=== PATIENT | female | born 1995 | race Caucasian/White ===

== ENCOUNTER 2020-12-15 15:43 | Emergency (ER) | payer BC ==
[2020-12-15 16:17] VITALS: RESP 18; TEMP 98.5
--- NOTE | 2020-12-15 16:19 | ED ---
General Adult HPI - General Source: patient, RN notes reviewed Mode of arrival: ambulatory Limitations: no limitations <Paul Salamanca - Last Filed: 12/15/20 16:15> <Billy Merino - Last Filed: 12/15/20 17:11> - General Stated complaint: Covid+/21wks preg/low o2 Time Seen by Provider: 12/15/20 16:16 - History of Present Illness Initial comments: This a 25-year-old female presents emergency Department chief complaint shortness of breath. Patient states she started with covid symptoms a few days ago. Patient recently tested positive for covid. Patient states she is 21 weeks . Patient does have history of asthma. Patient states her shortness breath just started last couple days no chest pain no fevers or chills recently. Patient states that she feels better at this time. (Paul Salamanca) This is a 25-year-old female who is 21 weeks . Patient states she was diagnosed with COVID and she felt a little short of breath today so she took her pulse ox at home and it was closer she decided come in. Patient states when she arrived. They took her pulse ox urine was normal. Patient states currently she is not feeling short of breath. Patient states she does have a history of asthma and yesterday she felt as though she had a little bit of a wheeze but today she does not feel that way. Patient denies any chest pain recent fever chills. Patient denies any swelling to the legs or calf tenderness. Patient states she had no palpitations. (Billy Merino) - Related Data Previous Rx's Medication Instructions Recorded Albuterol Inhaler [Ventolin Hfa 2 puff INHALATION RT-QID #2 puff 12/15/20 Inhaler] Review of Systems ROS Other: All systems not noted in ROS Statement are negative. <Paul Salamanca - Last Filed: 12/15/20 16:15> ROS Other: All systems not noted in ROS Statement are negative. <Billy Merino - Last Filed: 12/15/20 17:11> ROS Statement: Those systems with pertinent positive or pertinent negative responses have been documented in the HPI. General Exam <Billy Merino - Last Filed: 12/15/20 17:11> - General Exam Comments Initial Comments: GENERAL: Patient is well-developed and well-nourished. Patient is nontoxic and well- hydrated and is in mild distress. ENT: Neck is soft and supple. No significant lymphadenopathy is noted. Oropharynx is clear. Moist mucous membranes. Neck has full range of motion without eliciting any pain. EYES: The sclera were anicteric and conjunctiva were pink and moist. Extraocular movements were intact and pupils were equal round and reactive to light. Eyelids were unremarkable. PULMONARY: Unlabored respirations. Good breath sounds bilaterally. No audible rales rhonchi or wheezing was noted. CARDIOVASCULAR: There is a regular rate and rhythm without any murmurs gallops or rubs. ABDOMEN: Soft and nontender with normal bowel sounds. SKIN: Skin is clear with no lesions or rashes and otherwise unremarkable. NEUROLOGIC: Patient is alert and oriented x3. Cranial nerves II through XII are grossly intact. Motor and sensory are also intact. Normal speech, volume and content. Symmetrical smile. MUSCULOSKELETAL: Normal extremities with adequate strength and full range of motion. There is no calf tenderness or leg edema LYMPHATICS: No significant lymphadenopathy is noted PSYCHIATRIC: Normal psychiatric evaluation. (Billy Merino) Course Vital Signs 12/15/20 16:13 Temperature 98.5 F Pulse Rate 81 Respiratory 18 Rate Blood Pressure 128/73 O2 Sat by Pulse 97 Oximetry Medical Decision Making <Billy Merino - Last Filed: 12/15/20 17:11> - Medical Decision Making Chest x-ray shows no acute abnormality. Patient's vital signs are normal pulse ox is in the high 90s (Billy Merino) Disposition <Paul Salamanca - Last Filed: 12/15/20 16:15> Is patient prescribed a controlled substance at d/c from ED?: No Time of Disposition: 17:11 <Billy Merino - Last Filed: 12/15/20 17:11> Clinical Impression: COVID-19 Disposition: HOME SELF-CARE Condition: Good Instructions (If sedation given, give patient instructions): Coronavirus Disease 2019 (COVID-19) Prescriptions: Albuterol Inhaler [Ventolin Hfa Inhaler] 2 puff INHALATION RT-QID #2 puff Referrals: None,Stated [Primary Care Provider] - 1-2 days
--- NOTE | 2020-12-15 16:47 | XR ---
EXAMINATION TYPE: XR chest 2V DATE OF EXAM: 12/15/2020 CLINICAL HISTORY: covid. TECHNIQUE: Frontal and lateral view of the chest. COMPARISON: None FINDINGS: The cardiomediastinal silhouette is within normal limits for size. Pulmonary vasculature i s normal. There is no focal air space opacity, pleural effusion, or pneumothorax seen. The osseous st ructures are intact. IMPRESSION: No acute cardiopulmonary process.
[2020-12-15 17:27] VITALS: BP 122/62; PULSE 88
== END 2020-12-15 17:30 | disposition home or self-care (01) ==
LOC: EC 15:43
DX: O98.512 Other viral diseases complicating pregnancy, second trimester (principal); U07.1 COVID-19; O99.512 Diseases of the respiratory system complicating pregnancy, second trimester; J45.909 Unspecified asthma, uncomplicated; Z3A.21 21 weeks gestation of pregnancy
CPT/HCPCS: 71046; 99285

== ENCOUNTER 2021-04-26 15:12 | Inpatient (IN) | payer BC ==
[2021-04-26] MEDS ORDERED: OXYTOCIN 10 UNIT/ML 1 ML VIAL IM PRN (15:37)
[2021-04-26] MEDS ORDERED: CARBOPROST TROMETHAMINE 250 MCG/ML 1 ML AMP IM PRN (15:37)
[2021-04-26] MEDS ORDERED: LIDOCAINE 0.5% (PF) 5 MG/ML (50 ML SDV) SQ PRN (15:37)
[2021-04-26] MEDS ORDERED: TERBUTALINE 1 MG/ML VIAL SQ PRN (15:37)
[2021-04-26] MEDS ORDERED: METHYLERGONOVINE 0.2 MG/ML 1 ML AMP IM PRN (15:37)
[2021-04-26] MEDS ORDERED: OXYTOCIN 30 UNITS/500 ML NS 30 UNIT in SALINE 1 500ML.BAG IV SCH (15:45)
[2021-04-26] MEDS: LACTATED RINGERS 1,000 ML IV SCH ×2 (15:47→22:22)
[2021-04-26 15:50] LABS: Basophils % (A) 0 %; Eosinophils % (A) 0 %; HCT 37.5 % (34.0-46.0); HGB 12.8 gm/dL (11.4-16.0); Lymphocytes # (A) 1.3 k/uL (1.0-4.8); Lymphocytes % (A) 13 %; MCH 30.9 pg (25.0-35.0); MCHC 34.1 g/dL (31.0-37.0); MCV 90.7 fL (80.0-100.0); Mean Platelet Volume 8.8; Monocytes # (A) 0.4 k/uL (0-1.0); Monocytes % (A) 4 %; Neutrophils # (A) 7.8 k/uL (1.3-7.7); Neutrophils % (A) 81 %; Platelet Count 202 k/uL (150-450); RBC 4.13 m/uL (3.80-5.40); RDW 15.4 % (11.5-15.5); WBC 9.7 k/uL (3.8-10.6)
[2021-04-26] MEDS ORDERED: BUTORPHANOL 1 MG/ML 1 ML VIAL IV PRN (16:55)
--- NOTE | 2021-04-26 16:59 | P.HPOB ---
History of Present Illness H&P Date: 04/26/21 Chief Complaint: IUP at 40-2/7 weeks This is a 25-year-old 1 para 0 with an estimated due date of 04/24, 40- 2/7 weeks that presents to labor and delivery for induction of labor secondary to postdates. Patient has been receiving routine care which has been essentially uncomplicated. Ultrasound done today for postdates, estimated weight 26th percentile, normal amniotic fluid index, vertex presentation was appreciated. Patient did have a COVID 19 infection during this . Patient notes good movement, denies contractions or vaginal bleeding. Patient has a blood type of O-, rubella status immune, hepatitis surface antigen negative, HIV negative, RPR is nonreactive, group beta strep was negative. Review of Systems Constitutional: Denies fatigue, Denies fever Ears, nose, mouth and throat: Denies headache Cardiovascular: Reports leg edema Respiratory: Denies dyspnea Gastrointestinal: Denies nausea, Denies vomiting Genitourinary: Reports Past Medical History Past Medical History: Asthma Additional Past Medical History / Comment(s): scoliosis History of Any Multi-Drug Resistant Organisms: None Reported Past Surgical History: No Surgical Hx Reported Past Psychological History: No Psychological Hx Reported Smoking Status: Never smoker Past Alcohol Use History: None Reported Past Drug Use History: None Reported Medications and Allergies Home Medications Medication Instructions Recorded Confirmed Type Albuterol Inhaler [Ventolin Hfa 2 puff INHALATION RT-QID #2 puff 12/15/20 04/26/21 Rx Inhaler] Aspirin 81 mg PO DAILY 04/26/21 04/26/21 History Ferrous Sulfate [Feosol] 325 mg PO DAILY 04/26/21 04/26/21 History Pnv No.95/Ferrous Fum/Folic AC 1 tab PO DAILY 04/26/21 04/26/21 History [ Multivitamin Tablet] Allergies Allergy/AdvReac Type Severity Reaction Status Date / Time amoxicillin [From Amoxil] Allergy Rash/Hives Verified 04/26/21 15:34 cefaclor [From Ceclor] Allergy Rash/Hives Verified 04/26/21 15:34 Penicillins Allergy Rash/Hives Verified 04/26/21 15:34 Exam Osteopathic Statement: *. No significant issues noted on an osteopathic structural exam other than those noted in the History and Physical/Consult. Vital Signs Temp Pulse Resp BP 04/26/21 15:39 98.5 F 84 16 130/79 Intake and Output 04/26/21 04/26/21 04/26/21 06:59 14:59 22:59 Other: Weight 72.575 kg Targeted physical exam is performed in this date and certified legal investigator a well-nourished well-developed female in no acute distress, breathing is nonlabored, heart has regular rhythm, abdomen is gravid and appropriate for gestational age, on cervical exam she is 2/70/-3 station bulging bag of mcknight appreciated. V ertex presentation is confirmed. heart tones were noted be category 1 and she is amanda regularly. Results Result Diagrams: 04/26/21 15:40 Abnormal Lab Results - Last 24 Hours (Table) 04/26/21 Range/Units 15:40 Neutrophils # 7.8 H (1.3-7.7) k/uL Assessment and Plan (1) Post-dates Current Visit: Yes Status: Acute Code(s): O48.0 - POST-TERM SNOMED Code(s): 60711277 Plan: 25-year-old 1 para 0 at 40-2/7 weeks presents for induction of labor secondary to postdates. Patient is admitted to labor and delivery Pitocin induction of labor is begun. Amniotomy will be performed when appropriate. We'll monitor closely, options for analgesia are discussed in quitting Stadol and epidural. Patient does desire epidural when appropriate.
[2021-04-26] MEDS ORDERED: ROPIVACAINE 5MG/ML 20ML VIAL ONE (21:44)
[2021-04-26] MEDS ORDERED: fentaNYL (PF) 50 MCG/ML 5 ML AMP ONE (21:44)
[2021-04-26] MEDS ORDERED: SODIUM CHLORIDE 0.9% 100 ML BAG ONE (21:44)
[2021-04-27] MEDS: LACTATED RINGERS 1,000 ML IV SCH (01:00)
[2021-04-27] MEDS ORDERED: HYDROCORTISONE 2.5% RECTAL CREAM 30 GM TUBE RECTAL PRN (04:28)
[2021-04-27] MEDS ORDERED: diphenhydrAMINE 50 MG CAP PO PRN (04:28)
[2021-04-27] MEDS ORDERED: SIMETHICONE 80 MG CHEWABLE PO PRN (04:28)
[2021-04-27] MEDS ORDERED: diphenhydrAMINE 50 MG/ML 1 ML VIAL IVP PRN ×2 (04:28)
[2021-04-27] MEDS ORDERED: LANOLIN CREAM 5 GM TUBE TOPICAL PRN (04:28)
[2021-04-27] MEDS ORDERED: BENZOCAINE/MENTHOL SPRAY 1 GM/SPRAY AEROSOL TOPICAL PRN (04:28)
[2021-04-27] MEDS ORDERED: diphenhydrAMINE 25 MG CAP PO PRN (04:28)
[2021-04-27] MEDS ORDERED: ZOLPIDEM 5 MG TAB PO PRN (04:28)
--- NOTE | 2021-04-27 04:28 | P.PROBDLV ---
Vaginal Delivery Note - . Vaginal Delivery Note: This is a 25-year-old 1 para 0 at 40-2/7 weeks that presented to labor and delivery earlier this evening for induction of labor. Patient was admitted to labor and delivery and Pitocin induction of labor was begun. Once regular contractions were appreciated amniotomy was performed. Clear fluid was appreciated. Patient progressed through labor eventually becoming uncomfortable and requested epidural placement. Epidural was placed without difficulty by the anesthesia department. Patient progressed to complete began pushing and had a normal spontaneous vaginal delivery of a viable female infant, a loose nuchal cord was noted at delivery and delivered through. Weight of 6 lbs. 12 oz., Apgars of 8 and 9 at one and 5 minutes respectively, delivery time of 408. The umbilical cord was doubly clamped and cut and the infant was passed to the maternal abdomen. A spontaneous cry was noted at . The placenta was then delivered spontaneously intact with a three-vessel cord being noted. On inspection the patient's vaginal vault a secondary midline laceration was appreciated. After instillation of lidocaine the repair was completed with 3-0 Rapide in the usual fashion. The uterus was noted to be above the umbilicus on bimanual exam multiple clots were cleared from the uterus, the uterus was then firm and 2 below the umbilicus. Prior to delivery of the placenta the bladder was drained for 100 mL of clear yellow urine. After repair was complete hemostasis was noted, uterus is firm and below the umbilicus. All counts were noted be correct 2 at the end of the procedure. Patient and tolerated delivery well and are resting comfortably.
[2021-04-27] MEDS ORDERED: OXYTOCIN 30 UNITS/500 ML NS 30 UNIT in SALINE 1 500ML.BAG IV SCH (04:30)
[2021-04-27] MEDS ORDERED: miSOPROStoL 200 MCG TAB RECTAL PRN (07:00)
[2021-04-27] MEDS: IBUPROFEN 600 MG TAB PO PRN ×3 (07:03→21:22)
[2021-04-27] MEDS: SENNOSIDES-DOCUSATE SODIUM 1 EACH TAB PO SCH (08:07)
[2021-04-27] MEDS: PRENATAL VIT-IRON-FOLIC ACID 1 EACH CAP PO SCH (08:07)
[2021-04-27] MEDS ORDERED: Rhogam IMMUNE GLOBULIN 1,500 UNIT/1 ML IM ONE (09:20)
[2021-04-27 09:25] LABS: Basophils % (A) 0 %; Eosinophils % (A) 0 %; HCT 30.8 % (34.0-46.0); HGB 10.6 gm/dL (11.4-16.0); Lymphocytes # (A) 0.7 k/uL (1.0-4.8); Lymphocytes % (A) 4 %; MCH 31.3 pg (25.0-35.0); MCHC 34.3 g/dL (31.0-37.0); MCV 91.4 fL (80.0-100.0); Mean Platelet Volume 9.3; Monocytes # (A) 0.4 k/uL (0-1.0); Monocytes % (A) 2 %; Neutrophils # (A) 16.8 k/uL (1.3-7.7); Neutrophils % (A) 93 %; Platelet Count 168 k/uL (150-450); RBC 3.38 m/uL (3.80-5.40); RDW 15.7 % (11.5-15.5); WBC 18.1 k/uL (3.8-10.6)
--- NOTE | 2021-04-27 10:32 | P.PN ---
Progress Note - Text Progress Note Date: 04/27/21 25-year-old 1 now para 1 status post normal spontaneous vaginal delivery early this morning at 408. Patient has noted increased bleeding at intervals, uterus noted to be above the umbilicus and shifted to the right. Patient states she is unable to void a good amount. Patient had a small void. Patient was noting back pain with passage of large clot. On abdominal exam uterus is noted to be above the umbilicus shifted to the right. Catheter kit is opened, urethra is swabbed with Betadine 3. Latex free catheter is placed and an approximate 3 mL of urine is drained from the bladder. 1 mg of Stadol is given IV. Manual extraction of a large amount of clots is performed. Uterus was then noted to be firm and below the umbilicus. Flow is scant at that time. Membrane is appreciated within the clots. Scant flow after extraction. hemorrhage We will start IV antibiotics Kefzol 2 g IV every 8 for 24 hours, 3 doses. Timed voids, we will encourage patient to get up to the bathroom every 2 hours. CBC this evening to monitor hemoglobin.
[2021-04-27 18:27] LABS: HCT 25.9 % (34.0-46.0); MCH 30.1 pg (25.0-35.0); MCHC 33.8 g/dL (31.0-37.0); Mean Platelet Volume 9.6; Platelet Count 181 k/uL (150-450); RBC 2.91 m/uL (3.80-5.40); RDW 15.2 % (11.5-15.5); WBC 17.7 k/uL (3.8-10.6)
[2021-04-27 18:29] LABS: HGB 8.8 gm/dL (11.4-16.0)
--- NOTE | 2021-04-28 09:14 | P.PNOBGVD ---
Subjective - Subjective Principal diagnosis: day #1 s/p , PPH Interval history: Patient is feeling much better today. She states her pain is well-controlled. Miranda remains draining clear yellow urine. Lochia is noted to be minimal. She is breast-feeding without difficulty. is in the nursery for IV antibiotics Patient reports: Reports appetite normal, Reports voiding normally, Reports pain well controlled, Reports ambulating normally [place]: doing well (In the nursery for IV antibiotics) Objective - Latest Vital Signs Latest vital signs: Vital Signs Temp Pulse Resp BP Pulse Ox 04/28/21 00:00 98.0 F 80 16 110/70 04/27/21 20:30 98.7 F 112 H 14 124/63 98 04/27/21 16:29 99.0 F 105 H 17 124/68 04/27/21 12:00 98.3 F 107 H 18 118/77 97 Intake and Output 04/27/21 04/28/21 04/28/21 22:59 06:59 14:59 Intake Total 600 Output Total 200 500 600 Balance 400 -500 -600 Intake: Oral 600 Output: Urine 200 500 600 - Exam Extremities: Present: normal, edema Abdomen: Present: normal appearance, soft Uterus: Present: normal, firm - Labs Labs: Abnormal Lab Results - Last 24 Hours (Table) 04/27/21 04/27/21 Range/Units 09:03 18:17 WBC 18.1 H 17.7 H (3.8-10.6) k/uL RBC 3.38 L 2.91 L (3.80-5.40) m/uL Hgb 10.6 L 8.8 L D (11.4-16.0) gm/dL Hct 30.8 L 25.9 L (34.0-46.0) % RDW 15.7 H (11.5-15.5) % Neutrophils # 16.8 H (1.3-7.7) k/uL Lymphocytes # 0.7 L (1.0-4.8) k/uL Assessment and Plan (1) Post-dates Current Visit: Yes Status: Acute Code(s): O48.0 - POST-TERM SNOMED Code(s): 96248049 (2) Status post vaginal delivery Current Visit: Yes Status: Acute Code(s): AMQ9585 - SNOMED Code(s): 41502 8002 (3) hemorrhage Current Visit: Yes Status: Acute Code(s): O72.1 - OTHER IMMEDIATE HEMORRHAGE SNOMED Code(s): 74758888 (4) Acute blood loss anemia Current Visit: Yes Status: Acute Code(s): D62 - ACUTE POSTHEMORRHAGIC ANEMIA SNOMED Code(s): 128365076 Plan: 25-year-old G1 now P1 status post normal spontaneous vaginal delivery, hemorrhage with acute blood loss anemia. Patient is doing well. Miranda remains this morning we'll plan to discontinue and await spontaneous void. remains in the nursery for IV antibiotics. Plan CBC this morning, continue routine care.
[2021-04-28] MEDS: PRENATAL VIT-IRON-FOLIC ACID 1 EACH CAP PO SCH (09:43)
[2021-04-28] MEDS: SENNOSIDES-DOCUSATE SODIUM 1 EACH TAB PO SCH ×3 (09:43→19:38)
[2021-04-28] MEDS: IBUPROFEN 600 MG TAB PO PRN ×2 (09:44→19:38)
[2021-04-28 10:01] LABS: HCT 23.8 % (34.0-46.0); HGB 8.1 gm/dL (11.4-16.0); MCH 30.8 pg (25.0-35.0); MCHC 34.2 g/dL (31.0-37.0); MCV 90.3 fL (80.0-100.0); Mean Platelet Volume 8.6; Platelet Count 159 k/uL (150-450); RBC 2.64 m/uL (3.80-5.40); RDW 15.5 % (11.5-15.5); WBC 14.5 k/uL (3.8-10.6)
[2021-04-28] MEDS: IRON POLYSACCHARIDES COMPLEX 150 MG CAP PO SCH (12:00)
[2021-04-29] MEDS: ACETAMINOPHEN TAB 325 MG TAB PO PRN ×2 (00:47→09:22)
[2021-04-29] MEDS: IBUPROFEN 600 MG TAB PO PRN ×2 (04:49→12:22)
[2021-04-29 08:36] VITALS: RESP 18
--- NOTE | 2021-04-29 09:03 | P.DS ---
Providers Date of admission: 04/26/21 15:12 Expected date of discharge: 04/29/21 Attending physician: Reba Catherine Primary care physician: Stated None - Discharge Diagnosis(es) (1) Post-dates Current Visit: Yes Status: Acute (2) Status post vaginal delivery Current Visit: Yes Status: Acute (3) hemorrhage Current Visit: Yes Status: Acute (4) Acute blood loss anemia Current Visit: Yes Status: Acute Hospital Course: This is a 25-year-old 1 now para 1 that presented to labor and delivery for induction of labor on 04/26. Patient had been receiving routine care which is been essentially uncomplicated. For full details on this patient please see the dictated history and physical. Patient was admitted and Pitocin augmentation of labor was begun. Once regular contractions were noted patient underwent amniotomy and clear fluid was noted. Patient became uncomfortable and did request epidural placement. Epidural was placed without difficulty by the anesthesia department. Patient progressed to complete began pushing and had a normal spontaneous vaginal delivery of a viable female infant at 408, weight of 6 lbs. 12 oz. with Apgars of 8 and 9 at one and 5 minutes respectively. A loose nuchal cord was delivered through at the time of delivery. Patient did sustain a second-degree midline laceration which was repaired in the usual fashion. Patient did sustain a significant hemorrhage, she did blood loss greater than 1000. Manual extraction was performed after delivery with multiple large clots evacuated from the uterine cavity, small amounts of amniotic membrane were appreciated. Acute blood loss anemia was noted hemoglobin going from 12-8. Patient's vital signs have been normal, patient denies dizziness or shortness of breath upon ambulation. Patient states her lochia to be minimal. She is breast-feeding without difficulty. She states her pain is well- controlled. She is ambulating and voiding without difficulty. Her remains in the nursery on IV antibiotics. Patient Condition at Discharge: Good Plan - Discharge Summary Discharge Rx Participant: Yes New Discharge Prescriptions: No Action Aspirin 81 mg PO DAILY Albuterol Inhaler [Ventolin Hfa Inhaler] 2 puff INHALATION RT-QID #2 puff Ferrous Sulfate [Feosol] 325 mg PO DAILY Pnv No.95/Ferrous Fum/Folic AC [ Multivitamin Tablet] 1 tab PO DAILY Discharge Medication List Albuterol Inhaler [Ventolin Hfa Inhaler] 2 puff INHALATION RT-QID #2 puff 12/15/20 [Rx] Aspirin 81 mg PO DAILY 04/26/21 [History] Ferrous Sulfate [Feosol] 325 mg PO DAILY 04/26/21 [History] Pnv No.95/Ferrous Fum/Folic AC [ Multivitamin Tablet] 1 tab PO DAILY 04/26/21 [History] Follow up Appointment(s)/Referral(s): Reba Catherine DO [Doctor of Osteopathic Medicine] - 4 Weeks Activity/Diet/Wound Care/Special Instructions: Patient is urged to continue her vitamin daily, in addition iron supplementation twice daily. Dfst-[id number]-gxupern ibuprofen 600 mg every 6 hours as needed for pain. Discharge Disposition: HOME SELF-CARE
[2021-04-29] MEDS: PRENATAL VIT-IRON-FOLIC ACID 1 EACH CAP PO SCH (09:22)
[2021-04-29] MEDS: SENNOSIDES-DOCUSATE SODIUM 1 EACH TAB PO SCH (09:22)
[2021-04-29] MEDS: IRON POLYSACCHARIDES COMPLEX 150 MG CAP PO SCH (12:26)
[2021-04-29 15:59] VITALS: BP 111/62; PULSE 96; TEMP 98.4
== END 2021-04-29 18:04 | disposition home or self-care (01) | DRG 806 ==
LOC: 4FBP 15:12
PROVIDERS: ADMIT Obstetrics & Gynecology Obstetrics; ATTEND Obstetrics & Gynecology Obstetrics
PROC: 10907ZC Drainage of Amniotic Fluid, Therapeutic from Products of Conception, Via Natural or Artificial Opening (ICD-10-PCS; 2021-04-26)
PROC: 00HU33Z Insertion of Infusion Device into Spinal Canal, Percutaneous Approach (ICD-10-PCS; 2021-04-26)
PROC: 3E033VJ Introduction of Other Hormone into Peripheral Vein, Percutaneous Approach (ICD-10-PCS; 2021-04-26)
PROC: 3E0R3BZ Introduction of Anesthetic Agent into Spinal Canal, Percutaneous Approach (ICD-10-PCS; 2021-04-26)
PROC: 10E0XZZ Delivery of Products of Conception, External Approach (ICD-10-PCS; principal; 2021-04-27)
PROC: 0KQM0ZZ Repair Perineum Muscle, Open Approach (ICD-10-PCS; principal; 2021-04-27)
PROC: 3E0234Z Introduction of Serum, Toxoid and Vaccine into Muscle, Percutaneous Approach (ICD-10-PCS; 2021-04-27)
DX: O48.0 Post-term pregnancy (principal); O72.1 Other immediate postpartum hemorrhage; Z37.0 Single live birth; D62 Acute posthemorrhagic anemia; O99.02 Anemia complicating childbirth; O26.893 Other specified pregnancy related conditions, third trimester; Z67.41 Type O blood, Rh negative; O69.81X0 Labor and delivery complicated by cord around neck, without compression, not applicable or unspecified; O70.1 Second degree perineal laceration during delivery; Z3A.40 40 weeks gestation of pregnancy; O99.52 Diseases of the respiratory system complicating childbirth; J45.909 Unspecified asthma, uncomplicated; M41.9 Scoliosis, unspecified; Z88.1 Allergy status to other antibiotic agents; Z79.82 Long term (current) use of aspirin; Z79.899 Other long term (current) drug therapy; Z86.16 Personal history of COVID-19; Z88.0 Allergy status to penicillin
CPT/HCPCS: 85025; 85027; 85461; 86850; 86900; 86901; 88307

== ENCOUNTER → 2021-05-04 | Outpatient (CLI) | payer BC ==
--- NOTE | 2021-05-04 09:03 | US ---
EXAMINATION TYPE: US venous doppler duplex LE LT DATE OF EXAM: 05/04/2021 8:51 AM COMPARISON: NONE CLINICAL HISTORY: R22.42 LEFT calf swelling, M79.662 Pain in left ca. SIDE PERFORMED: left TECHNIQUE: The lower extremity deep venous system is examined utilizing real time linear array sonog arminda with graded compression, doppler sonography and color-flow sonography. VESSELS IMAGED: Common Femoral Vein Deep Femoral Vein Greater Saphenous Vein * Femoral Vein Popliteal Vein Small Saphenous Vein * Proximal Calf Veins (* superficial vessels) Left Leg: Negative for DVT Area of redness and pain scanned on left lateral leg, no evidence of superficial thrombus. IMPRESSION: No evidence for DVT.
== END | disposition home or self-care (01) ==
LOC: RADUSWWP 08:22
PROVIDERS: ATTEND Obstetrics & Gynecology Obstetrics
DX: R22.42 Localized swelling, mass and lump, left lower limb (principal); M79.662 Pain in left lower leg

== ENCOUNTER 2023-06-01 14:50 | Outpatient (CLI) | payer BC ==
[2023-06-01 17:39] VITALS: BP 127/68; PULSE 93; RESP 18; TEMP 97.2
--- NOTE | 2023-06-12 16:45 | P.MSEPDOC ---
Presenting Problems - Arrival Data Date of Arrival on Unit: 06/01/23 Time of Arrival on Unit: 14:50 Mode of Transport: Ambulatory - Complaint OB-Reason for Admission/Chief Complaint: Rule Out SROM Comment: rule out SROM at 1300, clear fluid small amount when bending down at work Medical History - Information : 2 Para: 1 Term: 1 : 0 Abortions: Spontaneous or Elective: 0 Number of Living Children: 1 - Gestational Age Gestational Age by NEY (wks/days): 34 Weeks and 4 Days - History Complications: Other Comment: prior hemorrhage Review of Systems - Review of Systems Constitutional: No problems Breast: No problems ENT: No problems Cardiovascular: No problems Respiratory: No problems Gastrointestinal: No problems Genitourinary: No problems Musculoskeletal: No problems Neurological: No problems Skin: No problems Vital Signs - Temperature Temperature: 97.2 F Temperature Source: Temporal Artery Scan - Pulse Right Pulse Oximetery Pulse Rate: 93 Pulse Assessment Method: Pulse Oximetry - Respirations Respiratory Rate: 18 Oxygen Delivery Method: Room Air O2 Sat by Pulse Oximetry: 98 - Blood Pressure Right Arm Blood Pressure: 127/68 Blood Pressure Mean: 87 Blood Pressure Source: Automatic Cuff Medical Screen Scoring - Cervical Exam Dilation (cm): 0 Effacement (%): 0 Station: -3 Membranes: Intact - Uterine Contractions Frequency From (mins): 2 Frequency To (mins): 7 Duration From (seconds): 40 Duration To (seconds): 50 Intensity: Mild Resting: Soft to palpation - Assessment - Baby A Baseline FHR: 140 Heart Rate - NICHD Category: Category I (Normal) NST: Reactive Physician Notification - Physician Notified Physician Notified Date: 06/01/23 Physician Notified Time: 16:00 Physician: Reba Catherine New Order Received: Yes (order to check patients cervix and orally hydrate.) - Notification Comment Comment: after patients cervix checked and orally hydrated patient in TR fr over an hour monitoring contarctions. remain 3-7 minutes apart, patient denies any pain, cervix closed, thick, high, okay to discharge home per Dr Catherine Maternal Triage Index - Maternal Triage Index Presenting for scheduled procedure w/no complaint: No - Stat/Priority 1 Stat Priority 1: No - Urgent/Priority 2 Urgent Priority 2: No - Prompt/Priority 3 Prompt Priority 3: Yes Criteria Met for Priority 3: rule out SROM 34 3/7 weeks gestation Disposition - Disposition OB Disposition: Discharge to home Discharge Date: 06/01/23 Discharge Time: 17:23 I agree with the RN Medical Screening Exam: Yes Case reviewed; plan agreed upon as documented in EMR&OBIX.: Yes Diagnosis: RELATED CONDITIONS, UNSPECIFIED, THIRD TRIMESTER
== END 2023-06-01 17:23 | disposition home or self-care (01) ==
LOC: FBPOP 14:50
PROVIDERS: ATTEND Obstetrics & Gynecology
DX: O47.03 False labor before 37 completed weeks of gestation, third trimester (principal); Z3A.34 34 weeks gestation of pregnancy; Z88.0 Allergy status to penicillin; Z88.8 Allergy status to other drugs, medicaments and biological substances
CPT/HCPCS: 59025; 84112; 99213

== ENCOUNTER 2023-06-28 18:14 | Inpatient (IN) | payer OTHER ==
[2023-06-28] MEDS ORDERED: TRANEXAMIC 1,000 MG/100ML-NACL 1,000 MG in EMPTY BAG 1 BAG IV PRN (19:12)
[2023-06-28] MEDS ORDERED: miSOPROStoL 200 MCG TAB PO PRN (19:12)
[2023-06-28] MEDS ORDERED: METHYLERGONOVINE 0.2 MG/ML 1 ML AMP IM PRN (19:12)
[2023-06-28] MEDS ORDERED: OXYTOCIN 10 UNIT/ML 1 ML VIAL IM PRN (19:12)
[2023-06-28] MEDS ORDERED: CARBOPROST TROMETHAMINE 250 MCG/ML 1 ML AMP IM PRN (19:12)
[2023-06-28] MEDS ORDERED: LIDOCAINE 0.5% (PF) 5 MG/ML (50 ML SDV) SQ PRN (19:12)
[2023-06-28] MEDS ORDERED: TERBUTALINE 1 MG/ML VIAL SQ PRN (19:12)
[2023-06-28] MEDS ORDERED: OXYTOCIN 30 UNITS/500 ML NS 30 UNIT in SALINE 1 500ML.BAG IV SCH (19:15)
[2023-06-28] MEDS: LACTATED RINGERS 1,000 ML IV SCH ×3 (20:00→22:11)
[2023-06-28 20:04] LABS: Basophils % (A) 0 %; Eosinophils # (A) 0.1 k/uL (0-0.7); Eosinophils % (A) 1 %; HCT 31.2 % (34.0-46.0); HGB 10.4 gm/dL (11.4-16.0); Lymphocytes # (A) 1.9 k/uL (1.0-4.8); Lymphocytes % (A) 14 %; MCH 27.2 pg (25.0-35.0); MCHC 33.3 g/dL (31.0-37.0); MCV 81.8 fL (80.0-100.0); Mean Platelet Volume 8.5; Monocytes # (A) 0.6 k/uL (0-1.0); Monocytes % (A) 5 %; Neutrophils # (A) 10.5 k/uL (1.3-7.7); Neutrophils % (A) 79 %; Platelet Count 240 k/uL (150-450); RBC 3.82 m/uL (3.80-5.40); RDW 14.3 % (11.5-15.5); WBC 13.4 k/uL (3.8-10.6)
--- NOTE | 2023-06-28 23:10 | P.HPOB ---
History of Present Illness H&P Date: 06/28/23 Chief Complaint: Leakage of fluid, contractions Ms. Pendleton is a 27 year old at 38 weeks and 3 days with EDC of 07/09/2023 (by LMP consistent with 10 week US) who presents to labor and delivery with gross rupture of membranes at 1600 revealing clear fluid. The patient was also experiencing contractions every 3-5 minutes. The has been uncomplicated. At 37 weeks the fetus was estimated in the 68%ile for growth. Obstetric history: 1 FTVD complicated by hemorrhage Labs: blood type O negative (s/p rhogam 04/10/2023), antibody negative, rubella immune, HBsAg negative, HIV negative, VDRL non-reactive, gonorrhea negative, chlamydia negative, GBS negative. Past medical history: Asthma, scoliosis Past Medical History Past Medical History: Asthma Additional Past Medical History / Comment(s): scoliosis History of Any Multi-Drug Resistant Organisms: None Reported Past Surgical History: No Surgical Hx Reported Past Anesthesia/Blood Transfusion Reactions: No Reported Reaction Past Psychological History: No Psychological Hx Reported Smoking Status: Never smoker Past Alcohol Use History: None Reported Past Drug Use History: None Reported Medications and Allergies Home Medications Medication Instructions Recorded Confirmed Type Aspirin 81 mg PO DAILY 04/26/21 06/28/23 History Pnv No.95/Ferrous Fum/Folic AC 1 tab PO DAILY 04/26/21 06/28/23 History [ Multivitamin Tablet] Loratadine [Claritin] 10 mg PO DAILY 06/28/23 06/28/23 History Allergies Allergy/AdvReac Type Severity Reaction Status Date / Time amoxicillin [From Amoxil] Allergy Rash/Hives Verified 06/01/23 15:13 cefaclor [From Ceclor] Allergy Rash/Hives Verified 06/01/23 15:13 Penicillins Allergy Rash/Hives Verified 06/28/23 18:29 Exam Vital Signs Temp Pulse Resp BP Pulse Ox 06/28/23 23:00 98.5 F 102 H 18 130/61 99 06/28/23 18:18 98.2 F 92 18 127/77 98 Intake and Output 06/28/23 06/28/23 06/29/23 14:59 22:59 06:59 Output Total 200 Balance -200 Output: Estimated Blood Loss 200 Other: Weight 74.389 kg Focused physical is performed is performed. This is a healthy-appearing in no apparent distress. Breathing is non-labored. Abdomen is gravid, non- tender. Cervical exam at admission is 2/60/-2. Extremities are non-tender and non-edematous. heart tones are category I, tocometer is graphing contractions every 4-5 minutes. Results Result Diagrams: 06/28/23 19:47 Abnormal Lab Results - Last 24 Hours (Table) 06/28/23 Range/Units 19:47 WBC 13.4 H (3.8-10.6) k/uL Hgb 10.4 L (11.4-16.0) gm/dL Hct 31.2 L (34.0-46.0) % Neutrophils # 10.5 H (1.3-7.7) k/uL Assessment and Plan Assessment: 18 year old at 38 weeks and 3 days with SROM Plan: Admit, NPO, mIVF, expectant management, continuous EFM and tocometer, close monitoring of patient. Time with Patient: Less than 30
[2023-06-28] MEDS ORDERED: SIMETHICONE 80 MG CHEWABLE PO PRN (23:18)
[2023-06-28] MEDS ORDERED: diphenhydrAMINE 25 MG CAP PO PRN (23:18)
[2023-06-28] MEDS ORDERED: ZOLPIDEM 5 MG TAB PO PRN (23:18)
[2023-06-28] MEDS ORDERED: HYDROCORTISONE 2.5% RECTAL CREAM 30 GM TUBE RECTAL PRN (23:18)
[2023-06-28] MEDS ORDERED: BENZOCAINE/MENTHOL SPRAY 1 GM/SPRAY AEROSOL TOPICAL PRN (23:18)
[2023-06-28] MEDS ORDERED: LANOLIN CREAM 5 GM TUBE TOPICAL PRN (23:18)
[2023-06-28] MEDS ORDERED: diphenhydrAMINE 50 MG/ML 1 ML VIAL IVP PRN ×2 (23:18)
[2023-06-28] MEDS ORDERED: Rhogam IMMUNE GLOBULIN 1,500 UNIT/1 ML IM ONE (23:18)
[2023-06-28] MEDS ORDERED: diphenhydrAMINE 50 MG CAP PO PRN (23:18)
[2023-06-28] MEDS ORDERED: ACETAMINOPHEN TAB 325 MG TAB PO PRN (23:18)
[2023-06-28] MEDS ORDERED: IBUPROFEN 600 MG TAB PO PRN (23:18)
--- NOTE | 2023-06-28 23:18 | P.PROBDLV ---
Vaginal Delivery Note - . Vaginal Delivery Note: DATE OF SERVICE: 06/28/2023 PROCEDURE: Normal Vaginal Delivery ATTENDING: Dr. Yin Mascorro MD ESTIMATED BLOOD LOSS: 200 mL FINDINGS: VMI, Apgars 8/9. Weight 7 pounds and 0 ounces (3175 grams) PROCEDURE: Ms. Pendleton is a 27 year old at 38 weeks and 3 days presenting to labor and delivery for spontaneous rupture of membranes at 1600 revealing clear fluid. The has been uncomplicated. For further details, please review the admitting H&P. The patient was amanda regularly and was therefore expectantly managed. The patient received epidural anesthesia per her request. The patient was completely dilated at 2200. She pushed effectively wi th category II heart tones noted during the second stage. A viable male was delivered at 2243. The infant was placed on the maternal abdomen and bulb suctioned. Cord was clamped and cut after a 30-second delay. The was handed off to the pediatric team. Placenta was delivered whole with gentle cord traction at 2247. Oxytocin was started to facilitate uterine tone. Uterine fundus was found to be firm and below the umbilicus upon fundal massage. Thorough examination of the cervix, vagina, periurethral area, and perineum revealed a small second degree perineal laceration. This was infiltrated with lidocaine and repaired with 2-0 Vicryl in the usual fashion. The patient is stable and allowed to begin the bonding process.
[2023-06-29 06:45] LABS: Basophils % (A) 0 %; Eosinophils % (A) 0 %; HCT 27.4 % (34.0-46.0); HGB 9.1 gm/dL (11.4-16.0); Hypochromasia Slight; Lymphocytes # (A) 1.5 k/uL (1.0-4.8); Lymphocytes % (A) 10 %; MCH 27.5 pg (25.0-35.0); MCHC 33.3 g/dL (31.0-37.0); MCV 82.4 fL (80.0-100.0); Mean Platelet Volume 9.4; Monocytes # (A) 0.7 k/uL (0-1.0); Monocytes % (A) 5 %; Neutrophils # (A) 12.7 k/uL (1.3-7.7); Neutrophils % (A) 84 %; Platelet Count 234 k/uL (150-450); RBC 3.32 m/uL (3.80-5.40); RDW 14.4 % (11.5-15.5); WBC 15.2 k/uL (3.8-10.6)
--- NOTE | 2023-06-29 12:50 | P.PNOBGVD ---
Subjective - Subjective Principal diagnosis: day 1 Interval history: Patient is doing well . She is ambulating and voiding without difficulty. She is tolerating regular diet without nausea or vomiting. She is without complaints this morning in anticipate discharge home tomorrow. Lochia is minimal to moderate. Patient reports: Reports appetite normal, Reports voiding normally, Reports pain well controlled, Reports ambulating normally [place]: doing well Objective - Latest Vital Signs Latest vital signs: Vital Signs Temp Pulse Resp BP Pulse Ox 06/29/23 08:00 98.2 F 69 16 112/65 06/29/23 04:00 98.5 F 86 16 113/70 98 06/29/23 00:51 97.4 F L 90 18 119/58 06/29/23 00:30 80 18 116/60 06/29/23 00:00 82 18 119/58 06/28/23 23:45 81 18 119/59 06/28/23 23:30 90 18 123/55 06/28/23 23:15 90 18 126/60 06/28/23 23:00 98.5 F 102 H 18 130/61 99 06/28/23 18:18 98.2 F 92 18 127/77 98 Intake and Output 06/28/23 06/29/23 06/29/23 22:59 06:59 14:59 Output Total 486 Balance -486 Output: Estimated Blood Loss 200 Output, Quantitative 286 Blood Loss Other: # Voids 2 2 Weight 74.389 kg - Labs Labs: Abnormal Lab Results - Last 24 Hours (Table) 06/28/23 06/29/23 Range/Units 19:47 05:56 WBC 13.4 H 15.2 H (3.8-10.6) k/uL RBC 3.32 L (3.80-5.40) m/uL Hgb 10.4 L 9.1 L (11.4-16.0) gm/dL Hct 31.2 L 27.4 L (34.0-46.0) % Neutrophils # 10.5 H 12.7 H (1.3-7.7) k/uL Assessment and Plan (1) Term Current Visit: Yes Status: Acute Code(s): Z34.90 - ENCNTR FOR SUPRVSN OF NORMAL , UNSP, UNSP TRIMESTER SNOMED Code(s): 39213207 (2) SROM (spontaneous rupture of membranes) Current Visit: Yes Status: Acute Code(s): TGB4923 - SNOMED Code(s): 568069407 (3) Active labor Current Visit: Yes Status: Acute Code(s): UTJ1325 - SNOMED Code(s): 602982560 Plan: Patient is doing well . Continue routine care and anticipate discharge home tomorrow.
[2023-06-29] MEDS: SENNOSIDES-DOCUSATE SODIUM 1 EACH TAB PO SCH (20:10)
[2023-06-30] MEDS: SENNOSIDES-DOCUSATE SODIUM 1 EACH TAB PO SCH (00:14)
--- NOTE | 2023-06-30 09:35 | P.DS ---
Providers Date of admission: 06/28/23 18:57 Expected date of discharge: 06/30/23 Attending physician: Reba Catherine Primary care physician: Stated None - Discharge Diagnosis(es) (1) Active labor Current Visit: Yes Status: Acute (2) SROM (spontaneous rupture of membranes) Current Visit: Yes Status: Acute (3) Term Current Visit: Yes Status: Acute (4) Status post vaginal delivery Current Visit: No Status: Acute Hospital Course: This is a 27-year-old 2 now para 2 woman who presented at 38-3/7 weeks gestation with spontaneous rupture of membranes in active labor. Following admission she did receive an epidural anesthetic and progressed on rapidly to complete cervical dilation. She had category 2 heart tones in the second stage. She went on to deliver a liveborn male with Apgars of 8 at 1 minute and 9 at 5 minutes weighing 7 lbs. 0 oz. Please see the delivery summary for details. The patient's post course was entirely unremarkable. By day #1 she was ambulating and voiding without difficulty. Her lochia was decreasing and she was breast-feeding successfully. Her vital signs were stable. By day #2 she continued to do very well with minimal lochia and stable vital signs. She was voiding without difficulty and was therefore discharged home with routine instructions for care and follow-up. Patient Condition at Discharge: Good Plan - Discharge Summary New Discharge Prescriptions: No Action Aspirin 81 mg PO DAILY Loratadine [Claritin] 10 mg PO DAILY Pnv No.95/Ferrous Fum/Folic AC [ Multivitamin Tablet] 1 tab PO DAILY Discharge Medication List Aspirin 81 mg PO DAILY 04/26/21 [History] Pnv No.95/Ferrous Fum/Folic AC [ Multivitamin Tablet] 1 tab PO DAILY 04/26/21 [History] Loratadine [Claritin] 10 mg PO DAILY 06/28/23 [History] Follow up Appointment(s)/Referral(s): Yin Mascorro MD [STAFF PHYSICIAN] - 6 Weeks Activity/Diet/Wound Care/Special Instructions: Follow-up in the office in 6 weeks . Call with any concerning signs or symptoms including heavy vaginal bleeding, severe abdominal pain, fever greater than 101, swelling or redness of the lower extremities, foul vaginal discharge, or signs of depression. Nothing in the vagina for 6 weeks after delivery, specifically no intercourse. Discharge Disposition: HOME SELF-CARE
[2023-06-30 10:09] VITALS: BP 115/76; PULSE 78; RESP 16; TEMP 98.3
== END 2023-06-30 11:15 | disposition home or self-care (01) | DRG 807 ==
LOC: FBPOP 18:14 → 4FBP 18:57
PROVIDERS: ADMIT Obstetrics & Gynecology; ATTEND Obstetrics & Gynecology Obstetrics
PROC: 10E0XZZ Delivery of Products of Conception, External Approach (ICD-10-PCS; principal; 2023-06-28)
PROC: 0KQM0ZZ Repair Perineum Muscle, Open Approach (ICD-10-PCS; 2023-06-28)
PROC: 3E033VJ Introduction of Other Hormone into Peripheral Vein, Percutaneous Approach (ICD-10-PCS; 2023-06-28)
PROC: 4A1HXCZ Monitoring of Products of Conception, Cardiac Rate, External Approach (ICD-10-PCS; 2023-06-28)
DX: O42.92 Full-term premature rupture of membranes, unspecified as to length of time between rupture and onset of labor (principal); Z37.0 Single live birth; O76 Abnormality in fetal heart rate and rhythm complicating labor and delivery; O70.1 Second degree perineal laceration during delivery; O99.52 Diseases of the respiratory system complicating childbirth; Z79.82 Long term (current) use of aspirin; Z3A.38 38 weeks gestation of pregnancy; O99.892 Other specified diseases and conditions complicating childbirth; M41.9 Scoliosis, unspecified; J45.909 Unspecified asthma, uncomplicated; Z88.1 Allergy status to other antibiotic agents; Z88.0 Allergy status to penicillin
CPT/HCPCS: 59025; 85025; 85461; 86850; 86900; 86901; 99213